=== PATIENT | male | born 2000 | race Caucasian/White ===

== ENCOUNTER 2025-03-19 21:33 | Emergency (ER) | payer MEDICAID ==
[~2025-03-19] VITALS: Ht 177.8 cm; Wt 74.8 kg
[2025-03-19] MEDS ORDERED: MAG HYDROX/AL HYDROX/SIMETH 30 ML UDC ONE (22:46)
[2025-03-19] MEDS ORDERED: LIDOCAINE VISCOUS 2% UD 15 ML UDC ONE (22:47)
[2025-03-19] MEDS ORDERED: ONDANSETRON 4 MG TAB.RAPDIS ONE (22:47)
[2025-03-19] MEDS: MAG HYDROX/AL HYDROX/SIMETH 30 ML UDC PO ONE (22:52)
[2025-03-19] MEDS: ONDANSETRON 4 MG TAB.RAPDIS SL ONE (22:52)
[2025-03-19] MEDS: LIDOCAINE VISCOUS 2% UD 15 ML UDC MM ONE (22:52)
[2025-03-19] MEDS ORDERED: PANT40TA2 PO (23:29)
[2025-03-19 23:34] VITALS: BP 135/88; TEMP 98.6; O2SAT 97
== END 2025-03-19 23:35 | disposition home or self-care (01) ==
LOC: ER 21:39
DX: K21.9 Gastro-esophageal reflux disease without esophagitis (principal); R11.0 Nausea; Z79.899 Other long term (current) drug therapy
CPT/HCPCS: 99284; Q0162

== ENCOUNTER 2025-05-15 18:16 | Emergency (ER) | payer SELFPAY ==
[~2025-05-15] VITALS: Ht 177.8 cm; Wt 76.7 kg
[~2025-05-15 18:16] MED LIST: PANT40TA2 PO
[2025-05-15 18:46] VITALS: BP 124/73; TEMP 98.4; O2SAT 98
[2025-05-15] MEDS ORDERED: DESO15CR8 TP (19:34)
[2025-05-15] MEDS ORDERED: FLUT15OI4 TP (19:34)
[2025-05-15] MEDS ORDERED: CETI-90 PO ×2 (19:34→19:35)
== END 2025-05-15 19:59 | disposition home or self-care (01) ==
LOC: ER 18:32
DX: R21 Rash and other nonspecific skin eruption (principal); Z91.048 Other nonmedicinal substance allergy status; Z79.899 Other long term (current) drug therapy

== ENCOUNTER 2025-06-08 12:24 | Emergency (ER) | payer SELFPAY ==
[~2025-06-08] VITALS: Ht 177.8 cm; Wt 77.1 kg
[~2025-06-08 12:24] MED LIST changes: +CETI-90 PO; +DESO15CR8 TP; +FLUT15OI4 TP
[2025-06-08 12:35] VITALS: BP 139/87; TEMP 98
[2025-06-08 13:39] VITALS: O2SAT 98
== END 2025-06-08 13:41 | disposition left against medical advice (07) ==
LOC: ER 12:39
DX: R21 Rash and other nonspecific skin eruption (principal); F17.200 Nicotine dependence, unspecified, uncomplicated; Z76.0 Encounter for issue of repeat prescription; Z79.899 Other long term (current) drug therapy; Z60.2 Problems related to living alone